=== PATIENT | male | born 1945 | race African-American/Black ===

== ENCOUNTER → 2020-06-07 | Emergency (ER) | payer OTHER ==
[~2020-06-07] VITALS: Ht 177.8 cm; Wt 99.8 kg
[~2020-06-07] MED LIST: METFORMIN HCL500 M3 PO
[2020-06-07 08:06] VITALS: BP 168/97
== END ==
LOC: ER 07:49
DX: S00.12XA Contusion of left eyelid and periocular area, initial encounter (principal); M79.631 Pain in right forearm; Z79.899 Other long term (current) drug therapy; W22.8XXA Striking against or struck by other objects, initial encounter; Y93.89 Activity, other specified; Y92.89 Other specified places as the place of occurrence of the external cause; Y99.8 Other external cause status